=== PATIENT | male | born 1995 | race Caucasian/White ===

== ENCOUNTER → 2021-02-07 14:56 | Outpatient (CLI) | payer OTHER, SELFPAY | PROVIDERS: PCP Family Medicine; Visit Provider Nurse Practitioner | DX: Z20.822 Contact with and (suspected) exposure to COVID-19 (principal) | CPT/HCPCS: C9803; U0003; U0005 ==

== ENCOUNTER → 2021-05-02 09:32 | Outpatient (CLI) | payer OTHER, SELFPAY | PROVIDERS: PCP Family Medicine; Visit Provider Nurse Practitioner | DX: U07.1 COVID-19 (principal) | CPT/HCPCS: C9803; U0003; U0005 ==

== ENCOUNTER 2024-05-24 20:53 | Emergency (ER) | payer OTHER, SELFPAY ==
[2024-05-24 21:03] VITALS: BP 141/90; PULSE 107; RESP 20; TEMP 37.5; O2SAT 98; BMI 28.5
--- NOTE | 2024-05-24 21:46 | ED_ITS ---
Discharge Plan Disposition Patient Disposition: Home, Self-Care Prescriptions Prescriptions: New sacgxwysulutknd-ykvodzeig-FI 2-30-10 mg/5 mL syrup 5 ml PO Q6H PRN (Reason: cold symptoms) 7 Days Qty: 118 0RF ondansetron 4 mg tablet,disintegrating 4 mg PO Q6H PRN (Reason: nausea and vomiting) 5 Days Qty: 20 0RF Referrals Follow up/Referrals: Kenneth Rodriguez [Primary Care Provider] - See instructions Activity Restrictions/Add. Instructions Additional Instructions/Restrictions: As discussed no emergent medical condition or serious bacterial infection was identified today. Your symptoms are consistent with a viral syndrome. Also as discussed no exact etiology was indicated as you have no significant comorbidities and are not at high risk for serious complications therefore determining the exact viral cause of this would not change room attendant. Most likely this is the flu given the fact that flu is currently endemic and your symptoms are consistent with that. Therefore the treatment is supportive. Please take 1000 mg of Tylenol along with 800 mg of ibuprofen [id number] 3 times a day with food. This in addition to your cough medicine and nausea medicine that has been prescribed and drink plenty of fluids as discussed please return with any significant worsening of your symptoms. Clinical Impressions Clinical Impression: Flu-like symptoms Stand Alone Forms Stand Alone Forms: Work/School Release Print Language Print Language: Japanese Discharge ED Provider: Prasanna Diaz General Adult HPI General Chief complaint: Upper Respiratory Infection Stated complaint: cough,chills,dizzy , headache Time Seen by Provider: 05/24/24 21:39 Mode of Arrival: Ambulatory Source of Information: Patient Limitations: No Limitations Description of Symptoms (Recalled from ER Triage Doc. by RN): pt reports feeling overall unwell for three days, he has had a low grade fevee, cough , congestion, and dizziness History of Present Illness HPI narrative: 28-year-old male with no significant past medical history no history of smoking presents today with 3 days of fever cough congestion dizziness and some bodyaches. Related Data Previous Rx's ?Medication ?Instructions ?Recorded fwimcbaylojtggu-rodavoibjvddcyt-LA 5 ml PO Q6H PRN cold symptoms 7 05/24/24 2 mg-30 mg-10 mg/5 mL oral syrup days #118 mL ondansetron 4 mg disintegrating 4 mg PO Q6H PRN nausea and 05/24/24 tablet vomiting 5 days #20 tabs Allergies Allergy/AdvReac Type Severity Reaction Status Date / Time No Known Allergies Allergy Verified 11/27/17 16:02 [facility] Disclaimer: The information contained in this section may have been updated after the patient was seen, as this information can be updated by other users. Social History Smoking Status: Never smoker alcohol intake: never current occupational status: other Travel in the last 8 weeks: None ROS Obtained: Yes All systems reviewed & no additional complaints except as documented Physical Exam General General appearance: alert and in no apparent distress Respiratory Respiratory exam: Present normal lung sounds bilaterally; Absent respiratory distress Cardiovascular Cardiovascular exam: Present regular rate and normal rhythm Neurological Exam Neurological exam: Present alert and oriented X3 Medical Decision Making Medical Records Screening: Per USPSTF and CDC recommendations, given the prevalence of disease in our region, it is our hospital?s policy to screen for HIV and viral Hepatitis for all patients aged 18 and over and those with ongoing risk factors. Rhett Inquiry Pt receiving controlled substance: No Vital Signs: 05/24/24 21:03 Temperature 99.5 F Temperature Source Oral Pulse Rate [Right] 107 H Respiratory Rate 20 Blood Pressure [Right Arm] 141/90 H Blood Pressure Mean [Right Arm] 107 02 Sat by Pulse Oximetry 98 Oxygen Delivery Method Room Air Orders (Tests/Meds): ED MEDICATIONS Discontinued Medications Generic Name Dose Route Start Last Admin Trade Name Johny PRN Reason Stop Dose Admin Acetaminophen 1,000 mg 05/24/24 21:43 Acetaminophen 500mg Tab PO 05/24/24 21:44 ONCE ONE Bromphen/Dextromethorphan/Pseudoeph 5 ml 05/24/24 21:43 Bromphen/Dm/Pse Cough Syrup 5ml PO 05/24/24 21:44 ONCE ONE Ibuprofen 800 mg 05/24/24 21:43 Ibuprofen 400 Mg Tablet PO 05/24/24 21:44 ONCE ONE Medical Decision Narrative: Very well-appearing nontoxic normal vital signs and a 28-year-old presenting today with flulike symptoms. He is 3 days out also has no significant comorbidities to suggest that he would be high risk for significant complications therefore determine the exact etiology of this viral illness is not indicated. I discussed this with the patient and he is aware and agreeable to this. Supportive care discussed Bromfed Tylenol and ibuprofen given in the ED. He has been advised to take Tylenol and ibuprofen in addition to his cough medicine and Zofran at home push aggressive p.o. fluids and to rest. Return precautions emphasized patient was discharged in stable condition. Critical Care Critical Care Time Critical Care Time: No
[2024-05-24] MEDS: IBUPROFEN 400 MG TABLET 800 MG PO (21:49)
[2024-05-24] MEDS: ACETAMINOPHEN 500MG TAB 1000 MG PO (21:49)
[2024-05-24] MEDS: BROMPHEN/DM/PSE COUGH SYRUP 5ML 5 ML PO (21:55)
[2024-05-24 21:58] VITALS: BP 141/90; PULSE 107; RESP 20; TEMP 37.5; O2SAT 98
== END 2024-05-24 21:59 | disposition home or self-care (01) ==
PROVIDERS: Emergency Provider Student in an Organized Health Care Education/Training Program; PCP Family Medicine
DX: R68.89 Other general symptoms and signs (principal); R50.9 Fever, unspecified; R05.9 Cough, unspecified; R09.81 Nasal congestion; R42 Dizziness and giddiness; R51.9 Headache, unspecified; M79.10 Myalgia, unspecified site
CPT/HCPCS: 99283